=== PATIENT | female | born 1980 | race Caucasian/White ===

== ENCOUNTER 2016-12-05 05:31 | Inpatient (IN) | payer OTHER ==
[2016-12-05] VITALS (35 sets, daily range): BP systolic 102–134; BP diastolic 57–92
[~2016-12-05] VITALS: Ht 162.6 cm; Wt 84.0 kg
[2016-12-05] MEDS ORDERED: TUMS500C PO (06:48)
[2016-12-05] MEDS ORDERED: ASPI81CH PO (06:48)
[2016-12-05] MEDS ORDERED: LEVO150T7 PO (06:48)
[2016-12-05] MEDS ORDERED: PRENTAB9 PO (06:48)
[2016-12-05 07:13] LABS: MEAN CORPUSCULAR HEMOGLOBIN 30.8 pg (27.0-33.0); MEAN CORPUSCULAR HGB CONC 34.7 g/dl (32.0-36.5); MEAN CORPUSCULAR VOLUME 88.8 fl (80.0-96.0); RED CELL DISTRIBUTION WIDTH 13.6 % (11.5-14.5); WHITE BLOOD COUNT 12.3 K/mm3 (4.0-10.0)
[2016-12-05] MEDS ORDERED: LACTATED RINGER'S 1000 ML IV STA (07:54)
[2016-12-05] MEDS ORDERED: LR 1,000 ML IV SCH ×2 (07:54→14:05)
--- NOTE | 2016-12-05 09:48 | HPEPDOC ---
Obstetrical History & Physical General Date of Admission Dec 05, 2016 at 06:17 History of Present Illness 36 y/o at 39+4 with LOF at ~0400 this AM. No VB/reg ctx's. Irreg ctx's only. Pos FM. 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: No pertinent history Past Medical History Medical History hypothyroidism heart murmur Surgical History: Denies/None Family History Significant Family History: No pertinent family hx Social History Marital Status: Family situation: Spouse/partner home Psychosocial History: No pertinent psych hx * Smoker: non-smoker Alcohol: Denies Drugs: denies Abuse Violence Screening Have you been hit/kicked/slapp: No Have you been sexually assault: No Imunizations Tdap status: current Influenza Status: declined Allergies Coded Allergies: Sulfa Antibiotics (Verified Allergy, Unknown, HIVES AND VOMITTING, 12/05/16 ) Medications Scheduled (Aspirin) 81 Mg Chw, 81 MG PO DAILY Levothyroxine Sodium (Synthroid) 150 Mcg Tab, 150 MCG PO DAILY Multivitamins/ ( 27-0.8 mg) 1 Tab Tab, 1 TAB PO DAILY Scheduled PRN Calcium Carbonate (Tums) 500 Mg Chw, 1,000 MG PO Q4H PRN for HEARTBURN Physical Examination Physical Examination GENERAL: Alert and oriented times three. ABDOMEN: Gravid and non-tender to touch. FETUS: Is vertex (VTX) by sterile vaginal examination (SVE), /-3. Copious clr amniotic fluid (nitr pos) with cx check HEART RATE: Regular rate and rhythm. LUNGS: Clear to auscultation (CTA). EXTREMITIES: No edema. Vital Signs/I&O Vital Signs Date Time Temp Pulse Resp B/P (MAP) Pulse Ox O2 Delivery O2 Flow Rate FiO2 12/05/16 09:06 98.6 74 18 109/57 (74) Laboratory Data 24H LABS Laboratory Tests 2 12/05/16 06:59: Urine Amphetamines Screen NEGATIVE, Urine Benzodiazepines Screen NEGATIVE, Urine Opiates Screen NEGATIVE, Urine Methadone Screen NEGATIVE, Urine Barbiturates Screen NEGATIVE, Urine Phencyclidine Screen NEGATIVE, Urine Cocaine Metabolite Screen NEGATIVE, Urine Cannabinoids Screen NEGATIVE, Syphilis Serology NONREACTIVE, Hepatitis B Surface Antigen NEGATIVE 12/05/16 08:54: Serology Scanned Report Hepatitis B Testing CBC/BMP Laboratory Tests 12/05/16 06:59 Red Blood Count 4.03, Mean Corpuscular Volume 88.8, Mean Corpuscular Hemoglobin 30.8, Mean Corpuscular Hemoglobin Concent 34.7, Red Cell Distribution Width 13.6 Urine Culture: Other (contaminated, no UTI) Pertinent Laboratoy Data Blood Type: O+ RBC Antibody Screen: Negative HIV: Negative Hepatitis B: Negative Hepatitis C: Unknown Rapid Plasma Reagin: Immune Rubella: Immune Varicella: Immune Chlamydia/Gonorrhea: Negative Group B Streptococcus: Negative Quad Screen Test: Negative (per pt, verbal only-no record on t-feliciano paperwork) Cystic Fibrosis: Negative Anatomy Ultrasound Ultrasound Date: Jul 08, 2016 Placenta Location: Posterior Normal Anatomy: Yes Placenta Previa: No Assessment Variability: Moderate Accelerations: Positive Decelerations: None Tocometer Frequency: irregular Strength: palpated as mild Assessment/Plan Assessment 36 y/o at 39+4 with PROM. Plan to check in 3-4 hrs and if no signif change start pitocin. Plan d/w pt and RN. Plan Admit and orient. Building Performance Consultant and consent. Diet: clrs Group B Streptococcus (GBS) neg Labs and intravenous (IV) per unit protocol. Counseled on Pitocin and induction of labor (IOL). Lactated Ringers (LR): 125 mL/hr. C-S as appropriate. Sessions MD AVINA,ESTEBAN Coon MD Dec 05, 2016 09:48
[2016-12-05] MEDS ORDERED: OXYTOCIN DRIP 30 UNITS in APPROPRIATE DILUENT 1 EA IV SCH (14:15)
[2016-12-05] MEDS ORDERED: FENTANYL 2MCG/ML ROPIVACAINE 0.2% IN 0.9% NACL 200ML IVBAG As Ordered ONE (16:34)
[2016-12-05] MEDS ORDERED: FENTANYL/ROPIVACAINE/NACL BAG 200 ML EPIDURAL SCH (18:30)
[2016-12-05] MEDS ORDERED: ONDANSETRON 4MG/2ML VIAL (J2405) IV PRN (18:30)
[2016-12-05] MEDS ORDERED: NALOXONE INJ 0.4 MG/1 ML VIAL (J2310) IV PRN (18:30)
[2016-12-05] MEDS ORDERED: ePHEDrine SULFATE 25 MG/5 ML(5MG/ML) SYRINGE IV PRN (18:30)
[2016-12-05] MEDS ORDERED: diphenhydrAMINE INJ 50MG/ML VIAL (J1200) IV PRN (18:30)
[2016-12-05] MEDS ORDERED: REFRIGERATOR IV KEYS XX PRN (18:30)
[2016-12-05] MEDS ORDERED: LACTATED RINGER'S 1000 ML IV PRN (18:30)
[2016-12-05] MEDS ORDERED: EPIDURAL/PCA KEYS XX PRN (18:30)
[2016-12-05] MEDS ORDERED: EPIDURAL COMMENT XX SCH (18:30)
[2016-12-06] VITALS (9 sets, daily range): BP systolic 114–134; BP diastolic 59–95
[2016-12-06] MEDS ORDERED: OXYTOCIN DRIP 30 UNITS in APPROPRIATE DILUENT 1 EA IV SCH (02:53)
[2016-12-06] MEDS ORDERED: RHOGAM 300 MCG (1500 IU) INJ (J2790) IM SCH (03:00)
[2016-12-06] MEDS ORDERED: PROMETHAZINE 25 MG TAB PO PRN (03:00)
[2016-12-06] MEDS ORDERED: MEASLES,MUMPS,RUBELLA VACCINE INJ (MMR-II) (90707) SC SCH (03:00)
[2016-12-06] MEDS ORDERED: METHYLERGONOVINE MALEATE 0.2 MG/ML VIAL (J2210) IM PRN (03:00)
[2016-12-06] MEDS ORDERED: DIBUCAINE 1% OINTMENT 30GM TOP PRN (03:00)
[2016-12-06] MEDS ORDERED: ONDANSETRON 4MG/2ML VIAL (J2405) IV PRN (03:00)
[2016-12-06] MEDS: IBUPROFEN 800 MG TAB PO PRN ×3 (03:18→18:11)
[2016-12-06] MEDS: ACETAMINOPHEN 500 MG TAB PO PRN ×2 (05:51→23:08)
[2016-12-06] MEDS: DOCUSATE SODIUM 100 MG CAP PO SCH ×2 (08:40→23:08)
[2016-12-06] MEDS: PRENATAL VITAMINS CHEWABLE TABLET PO SCH (08:40)
[2016-12-07 07:00] VITALS: BP 120/65
[2016-12-07] MEDS: DOCUSATE SODIUM 100 MG CAP PO SCH ×2 (08:31→22:11)
[2016-12-07] MEDS: PRENATAL VITAMINS CHEWABLE TABLET PO SCH (08:31)
[2016-12-07] MEDS: IBUPROFEN 800 MG TAB PO PRN ×2 (08:31→20:06)
[2016-12-07] MEDS ORDERED: INFLUENZA QUADRIVALENT PF VACCINE 0.5ML SYRINGE (90686) IM ONE (09:00)
[2016-12-07 18:39] VITALS: BP 141/89
[2016-12-07] MEDS: ACETAMINOPHEN 500 MG TAB PO PRN (22:11)
[2016-12-08] MEDS: IBUPROFEN 800 MG TAB PO PRN (04:38)
[2016-12-08 06:50] VITALS: BP 105/59
[2016-12-08] MEDS: DOCUSATE SODIUM 100 MG CAP PO SCH (08:59)
[2016-12-08] MEDS: PRENATAL VITAMINS CHEWABLE TABLET PO SCH (09:00)
[2016-12-08] MEDS ORDERED: COLA100C5 PO (09:18)
[2016-12-08] MEDS ORDERED: IBUP-1114 PO (09:20)
[2016-12-08] MEDS ORDERED: ACET50TA PO (09:20)
[2016-12-08] MEDS ORDERED: PRENTAB9 PO (09:20)
[2016-12-08] MEDS ORDERED: NUPE1OIN2 TOP (09:21)
--- NOTE | 2016-12-08 09:59 | DSES ---
DATE OF ADMISSION: 12/05/2016 DATE OF DISCHARGE: This lady is 36-year-old 1 now para 1, that came in with loss of fluid and contractions. Delivered a live female 6 pounds 11 ounces 3030 grams, of 7 and 8 at one and five minutes respectively. Her risk factors, she has hypothyroidism. She is an advanced maternal age(AMA). She has a physiologic heart murmur and she was a transfer of care late at 33 weeks. her discharge hemoglobin 12.4, hematocrit 35.8 and platelets are 255. Her vital signs on discharge: Her blood pressure is 141/89, respirations 18, pulse 94, temperature 98.0. Her baby is in intensive care unit (NICU). This patient is being made boarder status and is discharged from our care. She is normocephalic, atraumatic. Neck: Full range of motion. Pupils equal and reactive to light. Distal pulses are symmetric. No evidence of deep venous thrombosis, pulmonary embolus (DVT, PE) or superficial phlebitis. Thyroid is midline 30 grams and nontender. Lungs are clear bilaterally at bases. No wheezes or rhonchi. No costovertebral angle (CVA) tenderness. Abdomen: Soft uterus two below. Lochia is moderate. No rashes, lesions or pruritus. No arthralgia or myalgia. No cough, wheezes, shortness of breath or dyspnea on exertion. No chest pain not bleeding. Neuro complete. No incontinency or frequency. No nausea, vomiting, diarrhea or constipation. No diabetic issues. Family history is noncontributory. Gynecological history noncontributory. She does not smoke, drink abuse drugs. She is and there is no domestic violence. Has good support from her . In summary we have a term gestation delivered a live female infant. Baby is in NICU pending discharge. The patient will make a 6-week check and she was given meds on discharge.
== END 2016-12-08 15:00 | disposition home or self-care (01) | DRG 775 ==
LOC: M LDO 05:31 → M LDI 06:17 → EDBD 06:17 → M OBS 12-06 05:00
PROVIDERS: ADMIT Obstetrics & Gynecology; ATTEND Obstetrics & Gynecology
PROC: 10E0XZZ Delivery of Products of Conception, External Approach (ICD-10-PCS; principal; 2016-12-06)
DX: O99.284 Endocrine, nutritional and metabolic diseases complicating childbirth (principal); Z37.0 Single live birth; Z3A.39 39 weeks gestation of pregnancy; E03.9 Hypothyroidism, unspecified; Z79.899 Other long term (current) drug therapy; R01.1 Cardiac murmur, unspecified

== ENCOUNTER 2019-09-03 08:18 | Inpatient (IN) | payer OTHER ==
[2019-09-03] VITALS (19 sets, daily range): BP systolic 106–147; BP diastolic 53–94
[~2019-09-03] VITALS: Ht 162.6 cm; Wt 89.9 kg
[2019-09-03] MEDS: LEVOTHYROXINE 150MCG TABLET (0.15MG) PO SCH (06:00)
[~2019-09-03 08:18] MED LIST: ASPI81CH49 PO; COLA100C5 PO; IBUP-1114 PO; LEVO150T7 PO; MAPA500T2 PO; NUPE1OIN2 TOP; PRENTAB9 PO; TUMS500C PO
[2019-09-03] MEDS ORDERED: LACTATED RINGER'S 1000 ML IV STA (08:41)
[2019-09-03] MEDS ORDERED: TUMS750C5 PO (08:44)
[2019-09-03] MEDS ORDERED: PEPC1TAB5 PO (08:44)
[2019-09-03] MEDS ORDERED: LR 1,000 ML IV SCH ×2 (09:00→14:30)
[2019-09-03 09:06] LABS: BASO % 0.3 % (0.0-1.0); EOS % 0.3 % (0.0-3.0); HEMATOCRIT 41.2 % (36.0-47.0); HEMOGLOBIN 13.7 g/dl (12.0-15.5); LYMPH # 2.3 10^3/uL (1.5-5.0); MEAN CORPUSCULAR HEMOGLOBIN 31.3 pg (27.0-33.0); MEAN CORPUSCULAR HGB CONC 33.3 g/dl (32.0-36.5); MEAN CORPUSCULAR VOLUME 94.1 fl (80.0-96.0); MONO # 0.7 10^3/uL (0.0-0.8); MONO % 5.6 % (0.0-5.0); NEUTROPHILS # 8.4 10^3/uL (1.5-8.5); PLATELET COUNT, AUTOMATED 169 10^3/uL (150-450); RED BLOOD COUNT 4.38 10^6/uL (4.00-5.40); WHITE BLOOD COUNT 11.6 10^3/uL (4.0-10.0)
[2019-09-03] MEDS ORDERED: FENTANYL 2MCG/ML ROPIVACAINE 0.2% IN 0.9% NACL 100ML IVBAG As Ordered ONE (09:13)
--- NOTE | 2019-09-03 09:30 | HPEPDOC ---
Obstetrical History & Physical General Date of Admission Sep 03, 2019 at 08:38 History of Present Illness Admission Note S: Alina is a 39yo at 40+5wks being admitted for active labor. She reports active movement and regular painful contractions since 0200 this morning (requesting epidural now); she denies LOF/VB. Her spouse has just arrived to the unit for support. complicated by the following: AMA ([id number] negative) Hypothyroidism (taking 150mcg synthroid daily) Anemia (H/H improved with iron therapy) Overweight and excessive weight gain (36lbs) GBS Negative, COVID screen Negative, Blood Type O Positive, HIV negative OB History: 11/2016 - at 39+4wks, pelvis tested to 6lbs 11oz Chief Complaint: Contractions, term Information Provided By: Patient Age: 39 : 2 Term: 1 Pre-term: 0 Abortions: 0 Livin Care Care: Good Care Number of Visits: 10 Dating Final EDC: Aug 29, 2019 Final EDC for Daily Update: Aug 29, 2019 Final EDC by: LMP Antepartum Course Diagnos(e)s AMA, hypothyroidism, anemia Height (inches): 64.5 Pre- weight (lbs.): 162 Admission Weight (lbs.): 198 Change in Weight (lbs.): 36 Past Medical History Past Obstetrical History : Past Obstetrical History: Multigravida Type of Delivery: Spontaneous Vaginal Del. 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) Family History Significant Family History: Diabetes, Hypertension Social History Marital Status: Family situation: Spouse/partner home Psychosocial History: Anxiety * Smoker: non-smoker Alcohol: Denies Drugs: denies Abuse Violence Screening Have you been hit/kicked/slapp: No Have you been sexually assault: No Imunizations Tdap status: current Influenza Status: current Allergies Coded Allergies: MS - Sulfa Antibiotics (Verified Allergy, Unknown, HIVES AND VOMITTING, 12/05/16) Medications Scheduled Famotidine (Pepcid) 20 Mg Tablet, 20 MG PO BID Levothyroxine Sodium (Levothyroxine Sodium) 150 Mcg Tab, 150 MCG PO DAILY No.137/Iron/Folic Acd ( Vitamin Tablet) 1 Tab Tab, 1 TAB PO DAILY Miscellaneous Medications Calcium Carbonate (Tums) 300 Mg Tab.chew, 750 MG PO Physical Examination Physical Examination GENERAL: Alert and oriented times three. ABDOMEN: Gravid and non-tender to touch. FETUS: Is vertex by SVE HEART RATE: Regular rate. LUNGS: Observed nonlabored breathing. EXTREMITIES: No edema. Vital Signs/I&O O: VSS, afebrile, normotensive FHR 135, moderate variability, + accels, no decels noted CTX by TOCO q 1-2.5 minutes, moderate by palpation VE: 4.5/90/-2, BBOW, mid position Pertinent Laboratoy Data Blood Type: O+ RBC Antibody Screen: Negative HIV: Negative Hepatitis B: Negative Rapid Plasma Reagin: Nonreactive Rubella: Immune Varicella: Immune Chlamydia/Gonorrhea: Negative Group B Streptococcus: Negative Glucose Tolerance Test: 138 (3hr GTT WNL) Anatomy Ultrasound Ultrasound Date: Mar 31, 2019 Placenta Location: Posterior Normal Anatomy: Yes Other Ultrasounds [id number] - 67%tile Vaginal Examination Presentation: Cephalic presentation Assessment/Plan Assessment A: Alina is a 39yo at 40+5 weeks gestation being admitted for active labor, Category I FHT, GBS Negative, O Positive blood type. Plan P: Admit to LND, consent for labor, delivery, risks/benefits, possible augmentation if needed PIV start, admission labs drawn LR bolus now Epidural now CEFM x2 PO and IV hydration Order synthroid for AM dosing Close monitoring of maternal/ status Anticipate Consult with OB if indicated JONAH DONAHUE CNM Sep 03, 2019 09:29
[2019-09-03] MEDS ORDERED: NALOXONE INJ 0.4MG/1ML VIAL (J2310 PER 1MG) IV PRN (10:30)
[2019-09-03] MEDS ORDERED: EPIDURAL/PCA KEYS XX PRN (10:30)
[2019-09-03] MEDS ORDERED: ePHEDrine SULFATE 25 MG/5 ML(5MG/ML) SYRINGE IV PRN (10:30)
[2019-09-03] MEDS ORDERED: FENTANYL/ROPIVACAINE/NACL BAG 100 ML EPIDURAL SCH (10:30)
[2019-09-03] MEDS ORDERED: EPIDURAL COMMENT XX SCH (10:30)
[2019-09-03] MEDS ORDERED: REFRIGERATOR IV KEYS XX PRN (10:30)
[2019-09-03] MEDS ORDERED: ONDANSETRON 4MG/2ML VIAL IV PRN (10:30)
[2019-09-03] MEDS ORDERED: diphenhydrAMINE 50MG/ML VIAL (J1200) IV PRN (10:30)
[2019-09-03] MEDS ORDERED: OXYTOCIN DRIP 30 UNITS in IV 1 EA IV SCH ×2 (14:30→18:52)
--- NOTE | 2019-09-03 14:37 | IPNPDOC ---
Obstetrical Progress Note Date of Service Sep 03, 2019 Subjective Labor Progress S: Alina is a 39yo at 40+5wks who was admitted this AM for labor. She is very comfortable now with her epidural in place and has no concerns. Objective O: VSS, afebrile, normotensive FHR 135, moderate variability, no accels or decels CTX by TOCO: q2-3 minutes apart (pt moves frequently and there are periods of no ctx tracing) VE: /-2 (unchange from after epidural >4 hours ago) Clear fluid with bloody show noted SROMd at 0937 Vital Signs Date Time Temp Pulse Resp B/P (MAP) Pulse Ox O2 Delivery O2 Flow Rate FiO2 09/03/19 12:47 94 125/76 (92) Assessment Heart Rate Tracing: Category I Tocometer Contractions: Yes Sterile Vaginal Examination Postion/Presentation: Cephalic presentation Assessment and Plan Status: Reassuring Group B Streptococcus: Negative Anticipate: Vaginal Delivery Additional Comments A: 39yo at 40+5wks, active labor with no labor progress >4 hours, Category I FHT. P: CEFM x2 Close monitoring of maternal/ status Start pitocin augmentation Anticipate Consult with OB as indicated JONAH DONAHUE CNM Sep 03, 2019 14:36
[2019-09-03] MEDS ORDERED: CALCIUM CARBONATE 500 MG CHEW U/D PO PRN (15:00)
[2019-09-03 17:38] LABS: CORD GAS ABE V -11.6; CORD GAS HCO3 V 16.6 MEQ/L; CORD GAS O2 SAT V 70.8 %; CORD GAS PCO2 V 45.3 mmHg; CORD GAS PH V 7.181 UNITS; CORD GAS PO2 V 36.7 mmHg; CORD GAS SBC V 15.1 MEQ/L
[2019-09-03] MEDS ORDERED: ACETAMINOPHEN 500 MG TAB PO PRN (19:00)
[2019-09-03] MEDS ORDERED: ACETAMINOPHEN TAB 650MG DOSE (2X325MG) PO PRN (19:00)
[2019-09-03] MEDS ORDERED: IBUPROFEN 600MG TAB PO PRN (19:00)
[2019-09-03] MEDS ORDERED: DIBUCAINE 1% OINTMENT 30GM TOP PRN (19:00)
[2019-09-03] MEDS ORDERED: LIDOCAINE 1% MDV 20ML VIAL INFIL ONE (19:00)
--- NOTE | 2019-09-03 19:08 | DNPDOC ---
[facility] Delivery Note Delivery Note DATE OF DELIVERY: 03 September 2019 PREDELIVERY DIAGNOSIS: 40+5 weeks gestation and active labor. POST DELIVERY DIAGNOSIS: Delivered. PROCEDURE: Spontaneous Vaginal Delivery with Shoulder Dystocia PROCUREMENT ASSISTANT: MACARIO Gao with assistance of Dr. Whitman for delivery of shoulders. ANESTHESIA: Epidural and 1% lidocaine for repair. ESTIMATED BLOOD LOSS: 200mL. FINDINGS: 9 pound 2 ounce (4140g) female , Score 0/2/5/5, nuchal cord times 1. DELIVERY SUMMARY: Alina is a 39yo at 40+5wks who was admitted this morning in spontaneous active labor. She labored throughout the day, required augmentation with pitocin (started at 1530 and stopped at 1558). She started pushing o/a 1556 and heart tracing remained 90s to low 100s. Pitocin was turned off and pt was repositioned and tracing returned to baseline with moderated variability and accels. Pt continued to push with reassuring tracing consistent with pushing. I notified Dr. Esposito at 1609 of how the fetus reacted to trial pushing and let him know that fetus responded to repositioning and cont inued pushing and would call him if the fetus had any other episodes of not tolerating pushing. I monitored the progression of effective pushing and the fetus continued to moved down. Once the fetus was at +3 station, I gowned and prepped for delivery. Pt continued effective pushing and head delivered at 1722, MARIANGEL and restituted to LOT. Loose nuchal cord reduced at perineum. Using gentle downward pressure, attempted to deliver the anterior shoulder; there was no movement of the fetus or shoulder. Pt was repositioned to supine and directed to push, again, no further movement. At this time, a shoulder dystocia was called and I made my first request to call for assistance at 1723. I requested the patients legs to be positioned straight up, no movement of fetus with pushing or downward traction of the head. Mc. Menchaca and lucas called and attempted, requesting pressure from maternal left towards the right - there was no change in position or movement of the anterior shoulder. At 1724, I made another request for assistance. I also attempted Reubin's maneuver, but I was unable to rotate or move the posterior shoulder. I cut an episiotomy at this time and reattempted to rotated the posterior shoulder, of which I was not successful. At 1724/1725, Dr. Whitman arrived to the bedside as I was attempting to grasp the posterior shoulder to try to deliver the posterior arm, but this was also not successful. Dr. Whitman took over the remainder of the delivery and was successful using the [place] maneuver to deliver the female infant 1725, 3 minutes and 50 seconds total time of shoulder dystocia. was not crying and was limp; cord clamped x2 and cut by Dr. Whitman and she was taken immediately to the warmer where NRP was performed. *To note, Dr. Arroyo and the NICU team was requested at some time during the attempt to deliver - see RN notes for specific times. APGARs 0/2/5/5. Cord gases collected, cord blood collected; placenta delivered spontaneously and appeared intact, 3VC, sent to pathology. Upon inspection of vagina, perineum, and cervix, a shallow 3rd degree laceration noted (extension of episiotomy) and repaired by Dr. Whitman. Please see additional note by Dr. Whitman. Family has been updated on infant status by Dr. Arroyo. Anticipate an early discharge of patient so she can travel to [place] to visit her in the NICU. 09/03/19 17:32: Cord Arterial Blood pH , Cord Arterial Blood PCO2 , Cord Arterial Blood PO2 , Cord Arterial Blood HCO3 , Cord Arterial Blood Total CO2 , Cord Arterial Blood Base Excess , Cord Arterial Base Excess (Standard , Cord Arterial Bld Oxygen Saturation , Cord Venous Blood pH 7.181, Cord Venous Blood PCO2 45.3, Cord Venous Blood PO2 36.7, Cord Venous Blood HCO3 16.6, Cord Venous Blood Total CO2 18.0, Cord Venous Base Excess (Actual) -11.6, Cord Venous Base Excess (Standard) 15.1, Cord Venous Blood Oxygen Saturation 70.8 JONAH GAO CNM Sep 03, 2019 19:08
[2019-09-03] MEDS: IBUPROFEN 800 MG TAB PO PRN (19:22)
[2019-09-03] MEDS ORDERED: PERCOCET 5MG/325MG TAB PO ONE (20:00)
[2019-09-03] MEDS ORDERED: hydrOXYzine 25 MG TAB PO SCH (21:00)
[2019-09-03] MEDS: DOCUSATE SODIUM 100 MG CAP PO SCH (21:22)
[2019-09-04] MEDS ORDERED: KETOROLAC 30 MG/ML 1ML VIAL IV ONE (01:15)
[2019-09-04 05:35] VITALS: BP 114/72
[2019-09-04] MEDS: LEVOTHYROXINE 150MCG TABLET (0.15MG) PO SCH (06:10)
[2019-09-04] MEDS: DOCUSATE SODIUM 100 MG CAP PO SCH (07:44)
[2019-09-04] MEDS: IBUPROFEN 800 MG TAB PO PRN (07:45)
[2019-09-04] MEDS ORDERED: DOCU100C16 PO (08:19)
[2019-09-04] MEDS ORDERED: IBUP-1022 PO (08:19)
[2019-09-04] MEDS ORDERED: ACET-683 PO (08:19)
--- NOTE | 2019-09-04 08:35 | OBDS ---
[facility] Obstetrical Discharge Sum. Obstetrical Discharge Summary Date: Sep 04, 2019 Time: 08:31 : 2 Term: 2 Pre-term: 0 Abortions: 0 Livin Sex: Female Weight: pounds (9), ounces (2), grams (4140) Episiotomy Midline A/P, Post Course List any complications Admission diagnosis: Labor Discharge diagnosis: Delivered Condition at Discharge: Stable Discharge Instructions: Rest, adequate hydration, pain control with tylenol, ibuprofen, and rx for short term percocet (precautions reviewed); return precautions reviewed (bleeding and infection) Activity: Increase as tolerated Diet: Regular Medications: Motrin, tylenol, Percocet, colace Follow-up: 3 weeks (pt moving mid September) JONAH DONAHUE CNM Sep 04, 2019 08:35
--- NOTE | 2019-09-04 08:40 | IPNPDOC ---
Progress Note Date of Service: Sep 04, 2019 Day#: 1 Progress Note SUBJECT: Alina is a 39yo G2 now P2002 at Day #1PP s/p complicated with shoulder dystocia on [id number] at 1725. She is recovering as expected,but currently not doing well emotionally as her is in the NICU at [place]. She has been ambulating, but is in pain; voiding spontaneously without issue and tolerating regular diet. Reports lochia is normal. She plans on , but has not attempted pumping since delivery. OBJECTIVE: VITAL SIGNS: Within normal limits, afebrile. Alert and oriented times three. Abdomen: Fundus firm at U. Minimal lochia. No calf pain. ASSESSMENT: PP Day #1, normal involution, stable and progressing as expected. PLAN: 1. Discharge to home today. 2. Tylenol and Motrin for pain. 3. Percocet Rx for short term pain relief. 4. Encourage breast feeding/pumping, hydraiton, and ambulation. 5. Routine PP visit in 3 weeks in clinic. 6. Discussed return precautions at length. VS, [facility]O, [facility] Vital Signs/I&O Vital Signs Date Time Temp Pulse Resp B/P (MAP) Pulse Ox O2 Delivery O2 Flow Rate FiO2 09/04/19 05:35 98.5 79 114/72 (86) Room Air 09/03/19 20:15 18 I&O- Last 24 Hours up to 6 AM 09/04/19 06:00 Intake Total 3583.7 ml Output Total 200 ml Balance 3383.7 ml Laboratory Data 24H LABS Laboratory Tests 2 09/03/19 08:51: Serology Scanned Report Hepatitis B Testing 09/03/19 08:53: Immature Granulocyte % (Auto) 0.8, Neutrophils (%) (Auto) 73.0H, Lymphocytes (%) (Auto) 20.0L, Monocytes (%) (Auto) 5.6H, Eosinophils (%) (Auto) 0.3, Basophils (%) (Auto) 0.3, Neutrophils # (Auto) 8.4, Lymphocytes # (Auto) 2.3, Monocytes # (Auto) 0.7, Eosinophils # (Auto) 0.0, Basophils # (Auto) 0.0, Nucleated Red Blood Cells % (auto) 0.0 09/03/19 17:32: Cord Arterial Blood pH , Cord Arterial Blood PCO2 , Cord Arterial Blood PO2 , Cord Arterial Blood HCO3 , Cord Arterial Blood Total CO2 , Cord Arterial Blood Base Excess , Cord Arterial Base Excess (Standard , Cord Arterial Bld Oxygen Saturation , Cord Venous Blood pH 7.181, Cord Venous Blood PCO2 45.3, Cord Venous Blood PO2 36.7, Cord Venous Blood HCO3 16.6, Cord Venous Blood Total CO2 18.0, Cord Venous Base Excess (Actual) -11.6, Cord Venous Base Excess (Standard) 15.1, Cord Venous Blood Oxygen Saturation 70.8 CBC/BMP Laboratory Tests 09/03/19 08:53 JONAH DONAHUE Sep 04, 2019 08:40
[2019-09-04] MEDS ORDERED: PRENATAL VITAMINS CHEWABLE TABLET PO SCH (09:00)
--- NOTE | 2019-09-07 10:03 | DN ---
DATE OF DELIVERY: 09/03/2019 I was called to the labor room with urgency due to a shoulder dystocia that was ongoing. I arrived in the labor room. The baby's head was delivered, but the shoulders had not delivered yet. I assessed the baby for the posterior arm and was unable to deliver that. I rotated the baby using a Ruelas maneuver to transverse position and then was able to affect delivery of the right shoulder, which was the anterior shoulder. The cord was doubly clamped and cut. The infant was handed off to the awaiting nurse. Neonatology was called. Leni Gao then delivered the placenta without difficulty. It appeared intact. The patient received IV Pitocin after delivery of the placenta. An episiotomy had been performed by Leni Gao prior to my arrival. Upon assessment of the laceration, it appeared to be a partial third degree. The patient received a generous amount of 1% lidocaine injected to the perineum. The external anal sphincter was reinforced with two interrupted sutures of #2-0 chromic. The remaining second degree perineal laceration was repaired in the usual fashion with #2-0 chromic. Rectal exam at the end of the repair revealed no evidence of injury to the rectum. Sponge and needle counts were correct. Estimated blood loss 200 mL.
== END 2019-09-04 08:53 | disposition home or self-care (01) | DRG 768 ==
LOC: M LDO 08:18 → M LDI 08:38 → M OBS 21:30
PROVIDERS: ADMIT Registered Nurse Maternal Newborn; ATTEND Registered Nurse Maternal Newborn
PROC: 10E0XZZ Delivery of Products of Conception, External Approach (ICD-10-PCS; principal; 2019-09-03)
PROC: 0W8NXZZ Division of Female Perineum, External Approach (ICD-10-PCS; 2019-09-03)
PROC: 0DQR0ZZ Repair Anal Sphincter, Open Approach (ICD-10-PCS; 2019-09-03)
PROC: 0KQM0ZZ Repair Perineum Muscle, Open Approach (ICD-10-PCS; 2019-09-03)
DX: O48.0 Post-term pregnancy (principal); Z37.0 Single live birth; O70.21 Third degree perineal laceration during delivery, IIIa; Z3A.40 40 weeks gestation of pregnancy; O99.284 Endocrine, nutritional and metabolic diseases complicating childbirth; E03.9 Hypothyroidism, unspecified; O99.02 Anemia complicating childbirth; D64.9 Anemia, unspecified; O66.0 Obstructed labor due to shoulder dystocia; O69.81X0 Labor and delivery complicated by cord around neck, without compression, not applicable or unspecified; O70.1 Second degree perineal laceration during delivery